=== PATIENT | female | born 1985 | race Caucasian/White ===

== ENCOUNTER 2019-12-24 12:15 | Emergency (ER) | payer SELFPAY ==
[2019-12-24 12:32] VITALS: BP 153/80; PULSE 66; RESP 16; TEMP 36.8; O2SAT 97
--- NOTE | 2019-12-24 12:51 | ED.GENADULT ---
HPI - General Adult General Chief complaint: Upper Respiratory Infection Stated complaint: Sore throat History of Present Illness HPI narrative: Patient is a 34-year-old morbidly obese female presents to the urgent care with history significant for COPD via POV for evaluation of cold symptoms that have been present for approximately 1 week. Additionally, she reports sore throat, wheezing, cough, and intermittent shortness of breath. Patient denies taking OTC cold medications, ibuprofen, and Tylenol. Nothing improves or worsen symptoms. Patient states she is a tobacco smoker. She states she typically smokes 1 PPD although has been smoking 1-1/2-2 PPD's per day over the past week and a half. Denies history of, renal insufficiency, diabetes mellitus, asthma, and pneumonia. Pertinent negatives: fever, sweats, chills, change in appetite, fatigue, skin color changes, headache, nasal congestion/discharge, dizziness, lymphadenopathy, sinus problems, ear pain/drainage, chest pain, heart murmurs, heart palpitations, rash, drooling, voice changes, shortness of breath, cyanosis, hemoptysis, hoarseness, orthopnea, pleuritic pain, nausea, vomiting, diarrhea, and myalgias. Related Data Home Medications Medication Instructions Recorded Confirmed albuterol sulfate INHALATION 12/24/19 ranitidine HCl 12/24/19 Allergies Allergy/AdvReac Type Severity Reaction Status Date / Time No Known Allergies Allergy Unverified 04/12/19 17:38 Review of Systems Review of Systems: Narrative: All other systems reviewed and are negative PMFSH Comments I have reviewed and agree with the patient's past medical, surgical, social, and family hx as documented by the RN. There is no relevant family history pertinent to the presenting complaint. Exam Narrative: Exam Narrative: GENERAL: Well-appearing, well-nourished, and in no acute distress. HEAD: Normocephalic, atraumatic. No sinus tenderness or facial swelling appreciated. EYES: PERRLA and EOMI. No evidence of erythema, swelling, or drainage. ENT: Bilateral external ears and ear canals normal. Bilateral TMs are normal.No TM perforation. Nares clear, no rhinorrhea or epistaxis. Bilateral turbinates without erythema/ swelling. Mucous membranes moist and pink. Uvula is midline without erythema and swelling. No evidence of petechial rash, cobblestoning, lesions, ulcers, erythema, swelling, exudates, peritonsillar abscess, tenting, or drooling. Breath odor and voice normal. NECK: Supple. No Lymphadenopathy or nuchal rigidity appreciated. CHEST: Bilateral lung palma are moderately coarse with inspiratory wheezing throughout bilateral posterior lung palma. No respiratory distress. No evidence of cough or pleuritic cp upon examination. HEART: Regular rate and rhythm. No murmur, gallop, or rub heard. EXTREMITIES: Normal range of motion. No edema. SKIN: Warm, dry, no rash. NEURO: No focal deficits. Alert and oriented x3. Course Course Emergency Course: Patient does not meet criteria for Covid?19 testing. Vital Signs Vital signs: Vital Signs Temperature 98.3 F 12/24/19 12:32 Pulse Rate 66 12/24/19 12:32 Respiratory Rate 16 12/24/19 12:32 Blood Pressure 153/80 H 12/24/19 12:32 Pulse Oximetry 97 12/24/19 12:32 Temperature 98.3 F 12/24/19 12:32 Pulse Rate 66 12/24/19 12:32 Respiratory Rate 16 12/24/19 12:32 Blood Pressure 153/80 H 12/24/19 12:32 Pulse Oximetry 97 12/24/19 12:32 Medical Decision Making Differential Diagnosis Differential Diagnosis: Allergic rhinitis, ABRS, acute viral sinusitis, strep pharyngitis, nasopharyngitis, bronchitis, pneumonia, AOM, otitis externa, viral URI, influenza Medical Records Medical records reviewed: Yes I reviewed the patient's medical records. Vital Signs Vital Signs: Vital Signs Temperature 98.3 F 12/24/19 12:32 Pulse Rate 66 12/24/19 12:32 Respiratory Rate 16 12/24/19 12:32 Blood Pressure 153/80 H 0
== END 2019-12-24 13:01 | disposition home or self-care (01) ==
PROVIDERS: Emergency Provider Nurse Practitioner Family
DX: R05 Cough (principal); J44.9 Chronic obstructive pulmonary disease, unspecified; K21.9 Gastro-esophageal reflux disease without esophagitis
CPT/HCPCS: 99213; G0463

== ENCOUNTER 2022-01-18 12:52 | Outpatient (CLI) | payer OTHER, SELFPAY ==
--- NOTE | ~2022-01-18 | US_ITS ---
EXAMINATION: US pelvic complete w TV EXAM DATE: 01/18/2022 13:26 INDICATION: Trying to conceive . TECHNIQUE: Pelvic transabdominal and transvaginal sonogram was performed. There are multiple graysca le and Doppler images available for interpretation. There is no prior study for comparison. FINDINGS: Uterus measures 7.7 x 3.5 x 5.0 cm, and is morphologically normal. Endometrial stripe chandan sures 5 mm, within normal limits. There is no free pelvic fluid. Right adnexa: The ovary measures 3.9 x 2.4 x 3.4 cm and is morphologically normal containing the melanie nant follicle. Ovarian vascular flow confirmed. Left adnexa: The ovary measures 2.6 x 1.6 x 2.1 cm and is morphologically normal. Ovarian vascular fl ow confirmed. IMPRESSION: 1. Unremarkable pelvic ultrasound exam. Reviewed, dictated and finalized at location B.
--- NOTE | ~2022-01-18 | XR_ITS ---
XR lumbar spine 2-3V DATE: 01/18/2022 13:52 INDICATION: Lumbar radiculopathy TECHNIQUE: AP, lateral, coned lateral lumbosacral views COMPARISON: None FINDINGS: There is slight dextroscoliosis of the lumbar spine. There is severe degenerative disc disease at L5-S1 with loss virtual loss of interspace height, eburn ation and degenerative spurring. There is moderate loss of interspace height at L4-5. There is mild degenerative disc disease at L1-2 and L2-3 and L3-4. There is minimal anterolisthesis at L4-5, likely due to degenerative change at the apophyseal joints. No fracture or bone destruction. The lumbar pedicles are intact. The included mid to upper aspect of the sacroiliac joints are unremarkable. IMPRESSION: Multilevel degenerative disc disease, severe at L5-S1, moderate at L4-5, mild at the guille ining lumbar interspaces Minimal anterolisthesis at L4-5, likely due to degenerative change at the apophyseal joints Reviewed, dictated and finalized at location A. IMPRESSION: Multilevel degenerative disc disease, severe at L5-S1, moderate at L4-5, mild at the remaining lumbar interspaces Minimal anterolisthesis at L4-5, likely due to degenerative change at the apoph yseal joints
== END 2022-01-18 12:53 ==
LOC: MICIMG 12:53
PROVIDERS: PCP Physician Assistant; Visit Provider Physician Assistant
DX: Z13.9 Encounter for screening, unspecified (principal); M54.16 Radiculopathy, lumbar region; M51.36 Other intervertebral disc degeneration, lumbar region; M51.37 Other intervertebral disc degeneration, lumbosacral region
CPT/HCPCS: 72100; 76830; 76856

== ENCOUNTER 2024-02-08 12:08 | Emergency (ER) | payer BC, SELFPAY ==
--- NOTE | ~2024-02-08 | XR_ITS ---
EXAMINATION: XR chest 2V DATE: 02/08/2024 12:43 INDICATION: Difficulty breathing TECHNIQUE: frontal and lateral views of the chest were obtained. COMPARISON: Chest radiograph dated 03/27/2011 FINDINGS: The lungs remain clear with no focal airspace opacities, pulmonary edema, pleural effusion or pneumot horax. The cardiomediastinal silhouette is normal. Mild thoracic spondylosis. IMPRESSION: 1. No acute cardiopulmonary disease. Reviewed, dictated and finalized at location A.
--- NOTE | 2024-02-08 12:10 | ED.URI ---
HPI - URI/Sore Throat General Chief Complaint: Shortness of Breath/Dyspnea Stated Complaint: chest pain, breathing issues Time Seen by Provider: 02/08/24 12:10 Source: patient Mode of arrival: ambulatory Limitations: no limitations History of Present Illness HPI Narrative: Paradise is a 38-year-old female patient presenting to the clinic today with complaints of chest discomfort and shortness of breath for the past 45 minutes. She reports she has a productive cough, shortness of breath, wheezing, and burning in her chest. States that she does have early COPD. She is a current smoker. Has smoked since the age of 16. Smokes at least 1 pack per day Related Data Allergies Allergy/AdvReac Type Severity Reaction Status Date / Time No Known Allergies Allergy Unverified 04/12/19 17:38 Review of Systems Review of Systems: Pertinent positives per HPI. Patient denies any fever, chills, rash, headache, visual changes, dizziness, runny nose, sore throat, palpitations, nausea, vomiting, diarrhea, constipation, abdominal pain, or any urinary issues. PMFSH Comments At the time of my signature, I reviewed and agree with the nursing past medical, surgical, social, and family history. There is no relevant family history pertinent to the patient complaint. Exam Narrative: General: Well-developed, obese, anxious appearing Head: Normocephalic, atraumatic Eyes: Pupils equally round and reactive to light bilaterally, EOM intact, sclera and conjunctive clear, no discharge, lids normal Ears: TMs intact and clear, ear canals clear, no drainage, grossly hearing normal. Nose: Nares patent, no discharge, no inflammation, no sinus tenderness. Mouth: Oropharynx without lesions or masses, good dentition, MMM. Neck: Supple, trachea midline, no enlargement of anterior or posterior cervical nodes, no thyroid masses or goiter palpable. Cardio: Regular rate and rhythm, s1 and s2 normal, no murmur appreciated. Resp: Inspiratory and expiratory wheezing, lung sounds tight,no rhonchi, rales, or rubs Course Course Emergency Course: Portions of this record may have been created with voice recognition software. Level of Care: Express Care Visit Vital Signs Vital signs: Vital signs reviewed MDM - URI/Sore Throat MDM Narrative Medical decision making narrative: At the time of visit patient is resting comfortably on the exam table. Patient appears to be nontoxic. EKG: EKG shows sinus bradycardia with heart rate of 49 beats per minute without ST elevation, depression, or T-wave inversion. Diagnostics: Chest x-ray negative for any acute cardiopulmonary process Medications given: Hand-held DuoNeb treatment Plan: I suspect patient has bronchitis. Prescription for albuterol nebulizer solution and prednisone was sent to the pharmacy. Supportive measures were discussed with the patient and they voiced understanding discharge instructions and agrees to treatment plan. Return precautions reviewed Differential Diagnosis Differential diagnosis: Likely upper respiratory infection, bronchitis and other (COPD, asthma, typical chest pain, STEMI, non STEMI) Imaging Data Radiologist's impression: ITS Impressions Chest X-Ray 02/08/24 12:45 IMPRESSION: 1. No acute cardiopulmonary disease. ECG Data EKG #1: Attestation: I personally reviewed and interpreted this ECG as follows: ECG completion date: 02/08/24 ECG completion time: 12:32 Prior ECG tracings: not available for review Interpretation: EKG shows sinus bradycardia with heart rate of 59 beats per minute. No ST elevation, depression, or T-wave inversion. IN interval is 160 milliseconds, QRS durations 94 milliseconds, QT-QTC is 427-396 milliseconds, P-R-T axis is 62 72 60 Discharge Plan Discharge Clinical Impression: Bronchitis Patient Disposition: Home, Self-Care Condition: Stable Instructions: Antibiotic Form, Acute Bronchiti
[2024-02-08 12:21] VITALS: PULSE 72; RESP 16; O2SAT 98
[2024-02-08 12:22] VITALS: BP 136/86; PULSE 72; RESP 16; TEMP 36.7; O2SAT 98
--- NOTE | 2024-02-08 12:25 | ECG_ITS ---
SEE SCANNED COPY FOR CONFIRMED REPORT MTDD
[2024-02-08] MEDS: ALBUTEROL SULFATE NEB 2.5 MG/3 ML INH INHALATION (12:41)
[2024-02-08 12:42] VITALS: PULSE 72; RESP 16; O2SAT 98
[2024-02-08] MEDS: IPRATROPIUM BR 0.02% INH SOLN 0.5 MG/2.5 ML VIAL INHALATION (12:42)
[2024-02-08 13:10] VITALS: PULSE 74; RESP 18; O2SAT 98
== END 2024-02-08 13:14 | disposition home or self-care (01) ==
PROVIDERS: Emergency Provider Nurse Practitioner Family
DX: J40 Bronchitis, not specified as acute or chronic (principal); J44.9 Chronic obstructive pulmonary disease, unspecified; K21.9 Gastro-esophageal reflux disease without esophagitis
CPT/HCPCS: 71046; 93005; 94640; 99213; G0463

== ENCOUNTER 2025-07-16 11:51 | Outpatient (CLI) | payer OTHER, SELFPAY ==
--- NOTE | ~2025-07-16 | US_ITS ---
EXAMINATION: US venous doppler [facility], 07/16/2025 11:55 CDT HISTORY: Symptomatic varicose veins of lower exteremities COMPARISON: None Technique: Bravo-scale and color Doppler images were attempted of the lower saphenofemoral junction, common femoral vein,superficial femoral vein, proximal deep femoral vein, proximal deep femoral vein, popliteal vein and posterior tibial veins. Findings: Deep Venous System:Normal flow, augmentation and compressibility. No echogenic thrombus identified. Superficial Venous SystemNo superficial thrombophlebitis. Soft tissues: Soft tissues are unremarkable. Impression: Negative for DVT. Reviewed, dictated and finalized at location P. Impression: Negative for DVT.
== END 2025-07-16 11:52 | disposition home or self-care (01) ==
LOC: MICIMG 11:53
PROVIDERS: PCP Physician Assistant Medical; Visit Provider Physician Assistant Medical
DX: I83.893 Varicose veins of bilateral lower extremities with other complications (principal)
CPT/HCPCS: 93970

== ENCOUNTER 2025-07-30 13:58 | Outpatient (CLI) | payer OTHER, SELFPAY ==
--- NOTE | ~2025-07-30 | US_ITS ---
EXAMINATION: US pelvic complete w TV, 07/30/2025 14:08 CDT HISTORY: Abnormal uterine and vaginal bleeding Comparison: None Technique: Bravo-scale and color Doppler images were obtained. Findings: Uterus: Uterus anteverted 7.1 x 3.4 x 4.6 cm. . Endometrium 8 mm. Right Ovary:Right ovary 3.6 x 2.9 x 4.4 cm, no adnexal mass, normal flow, dominant follicle 2.7 x 2.5 cm. Left Ovary: Left ovary 2.5 x 1.7 x 2 cm, no adnexal mass, normal flow. Free Fluid: None Impression: No acute abnormality. Reviewed, dictated and finalized at location P. Impression: No acute abnormality.
== END 2025-07-30 13:59 | disposition home or self-care (01) ==
LOC: MICIMG 14:02
DX: N93.9 Abnormal uterine and vaginal bleeding, unspecified (principal)
CPT/HCPCS: 76830; 76856

== ENCOUNTER 2025-09-08 09:14 | Outpatient (CLI) | payer OTHER, SELFPAY ==
--- NOTE | ~2025-09-08 | MM_ITS ---
EXAMINATION: MM screening ron BI w carole HISTORY: Screening TECHNIQUE: Craniocaudal and mediolateral oblique 3-D tomosynthesis images were obtained and synthetic 2-D images were generated. CAD analysis was submitted and interpreted. COMPARISON: No prior mammogram is available for comparison at this institution. BREAST PARENCHYMAL COMPOSITION: Not dense: There are scattered areas of fibroglandular density. FINDINGS: There is no evidence of suspicious mass, calcification, or architectural distortion to suggest malignancy in either breast. There has been no suspicious interval change. IMPRESSION: 1. No mammographic evidence of malignancy. 2. Recommend routine screening mammography in one year. BI-RADS Category 1: Negative Reviewed, dictated and finalized at location I. HOBBER
--- OUTSIDE RECORDS SUMMARY | 2025-09-08 10:05 | XMS_ITS | Clinical Summary ---
Author Organization [address] Address [address] [place] [id number] Care Team Providers Care Group Work Program Aide Name Role Phone No, Physician Primary Care Provider [phone] Allergies No known active allergies Medications PARoxetine (PAXIL) 20 mg tablet Take 20 mg by mouth every morning. Active albuterol (PROVENTIL,VENT JEANNINE) 2.5 mg /3 mL (0.083 %) nebulizer solution Take 2.5 mg by nebulization every 6 (six) hours as needed for wheezing. Active Active Problems No known active problems Encounters Date Type Department Care Team Description 08/30/2025 10:43 AM [facility] - 08/30/2025 11:59 PM [facility] Hospital Encounter [facility] - Ultrasound [address], [address], [address] [facility] [place] [address] Abnormal uterine bleeding (AUB) Discharge Disposition: Discharge to home or self care 08/18/2025 Telephone [facility] Medicine Maternal- Medicine [address] [place] [address] Outpatient Health 7th Floor [address] [place] [address] Sadia Rogers from Last 3 Months Medical History Medical History Date Comments COPD (chronic obstructive pulmonary disease) Thyroid disease Social History Tobacco Use Types Packs/Day Years Used Date Smoking Tobacco: Every Day Smokeless Tobacco: Never Comments Unknown Sex and Gender Information Value Date Recorded Sex Assigned at Not on file Legal Sex Female 5:55 AM [employer] Gender Identity Not on file Sexual Orientation Not on file Last Filed Vital Signs Vital Sign Reading Time Taken Comments Blood Pressure 140/72 04/30/2017 3:28 PM CDT Pulse 74 04/30/2017 3:28 PM CDT Temperature 37.4 C (99.3 F) 04/30/2017 3:28 PM CDT Respiratory Rate 18 04/30/2017 3:28 PM CDT Oxygen Saturation 94% 04/30/2017 3:28 PM CDT Inhaled Oxygen Concentration - - Weight 160.1 kg (353 lb) 04/30/2017 3:28 PM CDT Height 175.3 cm (5' 9) 04/30/2017 3:28 PM CDT Body Mass Index 52.13 04/30/2017 3:28 PM CDT Plan of Treatment Health Maintenance Due Date Last Done Comments Breast Cancer Screening-Mammogram 1985 Cervical Cancer Screening 1985 Depression Screening 1985 Hepatitis C Screening 1985 DTaP/Tdap/Td Vaccine (1 - Tdap) 1996 Varicella Vaccines (1 of 2 - 13+ 2-dose series) 1997 Hepatitis B Screening 2003 Regular Well Visit/Exam 18-64 2003 Pneumococcal vaccine <65 (1 of 2 - PCV) 2004 HPV Vaccines (1 - 3-dose SCDM series) 2012 Influenza Vaccine (#1) 2025 Procedures Procedure Name Priority Date/Time Associated Diagnosis Comments US SONOHYSTEROGRAPHY Schedule Routine, Read Routine (OP Routine) 08/30/2025 10:43 AM [facility] Abnormal uterine bleeding (AUB) from Last 3 Months Results * US Sonohysterography (08/30/2025 10:43 AM [facility]) Cul de Sac No free fluid visualized VIEWPOINT Endometrial Thickness 9.7 mm&millim eters VIEWPOINT Anatomical Region Laterality Modality Pelvis N/A Ultrasound 08/30/2025 11:0 6 AM [facility] Impressions 08/30/2025 12:21 PM [employer] [employer] The uterus is axial/retroverted and normal in size and morphology. The endometrial stripe measures 9.7 mm. Both ovaries are mildly enlarged today which can be seen with polycystic ovaries. There was no evidence of free fluid in the pelvis. Patient was inappropriately scheduled for SIS today which will be rescheduled for day 10 of her next cycle. Narrative Procedure Note Mary Callejas MD - 08/30/2025 IMPRESSION: The uterus is axial/retroverted and normal in size and morphology. Theendometrial stripe measures 9.7 mm. Both ovaries are mildly enlarged todaywhich can be seen with polycystic ovaries. There was no evidence of freefluid in the pelvis. Patient was inappropriately scheduled for SIS todaywhich will be rescheduled for day 10 of her next cycle. us Sanchez Moon MD [facility] PROCEDURES Yvette l Result from Last 3 Months Insurance R [employer] [facility] H[facility]/PPO Address: [address] [id number] [employer] [facility] H[facility]/PPO Address: [facility] [address] [place] [address] Care Teams Group Work Program Aide Relationship Specialty Start Date End Date No, Physician PCP - General 04/30/17
== END 2025-09-08 09:15 | disposition home or self-care (01) ==
LOC: ANHFOHIMG 09:17
PROVIDERS: Visit Provider Physician Assistant Medical
DX: Z12.31 Encounter for screening mammogram for malignant neoplasm of breast (principal)
CPT/HCPCS: 77063; 77067